=== PATIENT | female | born 1975 | race Asian ===

== ENCOUNTER 2017-05-12 13:45 | Emergency (ER) | payer OTHER ==
[~2017-05-12] VITALS: Ht 162.6 cm; Wt 68.5 kg
[2017-05-12 13:51] VITALS: BP 111/69
--- NOTE | 2017-05-12 14:01 | NUR ---
PT GIVEN A UA CUP AND SENT TO LOBBY TO WAIT FOR A BED.
--- NOTE | 2017-05-12 14:17 | NUR ---
PT AMBULATED TO ER BED 11
--- NOTE | 2017-05-12 14:20 | NUR ---
41/F BIB C/O VAGINAL BLEEDING X2 WEEKS WORSENING THE PAST 4 DAYS; PT WAS SEEN HERE LAST WEEK ON 05/08/17 FOR SAME S/SX; PT STATES "I THINK I'M HAVING A MISCARRIAGE." PT USING 4-5 PADS/DAY. G-6 P-3 A-2 (1 1 miscariage) [employer] USED FOR TRANSLATION #[id number]. HX NONE. DENIES N/V/D; AAOX4 WITH EVEN AND STEADY GAIT; LUNGS CLEAR BL; PATIENT STATES PAIN OF 0/10 AT THIS TIME; VSS; PATIENT POSITIONED FOR COMFORT; HOB ELEVATED; BEDRAILS UP X2; BED DOWN. ER MD MADE AWARE OF PT STATUS.
[2017-05-12 15:05] LABS: BASOPHILS # (AUTO) 0.3 K/uL (0.00-0.22); EOSINOPHILS # (AUTO) 0.1 K/uL (0-0.4); EOSINOPHILS % (AUTO) 1.4 % (0.0-4.0); HEMATOCRIT 38.6 % (36-48); LYMPHOCYTES # (AUTO) 2.2 K/uL (2.5-16.5); LYMPHOCYTES % (AUTO) 31.7 % (20.5-51.1); MEAN CORPUSCULAR HEMOGLOBIN 29 pg (27-31); MEAN CORPUSCULAR HGB CONC 34 g/dL (33-37); MEAN CORPUSCULAR VOLUME 86 fL (80-94); MONOCYTES # (AUTO) 0.2 K/uL (0.8-1.0); MONOCYTES % (AUTO) 3.6 % (1.7-9.3); NEUTROPHILS % (AUTO) 58.3 % (42.2-75.2); PLATELET COUNT (AUTO) 244 K/uL (140-450); RED BLOOD CELL COUNT(AUTO) 4.48 MIL/uL (4.20-5.40); RED CELL DISTRIBUTION WIDTH 12.1 % (11.6-13.7); WHITE BLOOD COUNT (AUTO) 6.8 K/uL (4.8-10.8)
[2017-05-12 15:23] LABS: APPEARANCE,URINE CLEAR (CLEAR); BILIRUBIN,URINE NEGATIVE (NEGATIVE); BLOOD, URINE 3+ (NEGATIVE); COLOR,URINE YELLOW (YELLOW); LEUKOCYTE ESTERASE ,URINE NEGATIVE (NEGATIVE); NITRITE, URINE NEGATIVE (NEGATIVE); UGLUCOSE NEGATIVE (NEGATIVE)
[2017-05-12 15:33] LABS: RBC,URINE 20-50 /HPF (0-5); WBC,URINE 0-5 (RARE) /HPF (0-5)
--- NOTE | 2017-05-12 15:42 | NUR ---
Patient being evaluated by DR BRIONES at bedside.
[2017-05-12 16:40] VITALS: BP 105/68
--- NOTE | 2017-05-12 16:40 | NUR ---
DISCHARGE BY DR BRIONES.Patient discharged with v/s stable. Written and verbal after care instructions given and explained. Patient verbalized understanding. Ambulatory with steady gait. All questions addressed prior to discharge. Advised to follow up with PMD.
== END 2017-05-12 16:40 | disposition home or self-care (01) ==
LOC: MED 13:45
DX: O03.4 Incomplete spontaneous abortion without complication (principal)
CPT/HCPCS: 36415; 76817; 81001; 81025; 84702; 85025; 99285; Q0092